=== PATIENT | female | born 1950 | race Caucasian/White ===

== ENCOUNTER 2016-09-21 13:36 | Inpatient (IN) | payer OTHER ==
[~2016-09-21] VITALS: Ht 157.5 cm; Wt 60.0 kg
[2016-09-21] MEDS ORDERED: ASPI81TA28 PO (14:28)
[2016-09-21] MEDS ORDERED: CINN1CAP2 PO (14:28)
[2016-09-21] MEDS ORDERED: MULT-1092 PO (14:28)
[2016-09-21] MEDS ORDERED: GLUC10007 PO (14:28)
[2016-09-21] MEDS ORDERED: CYAN10005 PO (14:28)
[2016-09-21] MEDS ORDERED: CALC600T9 PO (14:28)
[2016-09-21] MEDS ORDERED: VITA400C3 PO (14:28)
[2016-09-21] MEDS ORDERED: OMEG10007 PO (14:28)
[2016-09-21] MEDS ORDERED: PRAV20TA PO (14:28)
--- NOTE | 2016-09-21 17:23 | DIAGNOSTIC IMAGING REPORT ---
PELVIS 1 OR 2 VIEW ROUTINE CLINICAL HISTORY: left hip pain pain COMPARISON: None. DISCUSSION: Subcapital fracture left hip. No evidence of dislocation. Moderate degenerative change right hip. Mild degenerative change sacroiliac joints There is no evidence for soft tissue swelling. IMPRESSION: Nondisplaced subcapital fracture left hip The above report was generated using voice recognition software. It may contain grammatical, syntax or spelling errors. Electronically signed by: Jethro Courtney M.D. 09/21/2016 5:22 PM Dictated Date/Time: 09/21/2016 5:21 PM
--- NOTE | 2016-09-21 17:24 | DIAGNOSTIC IMAGING REPORT ---
CHEST 1 VW FRONT-NOT PORTABLE CLINICAL HISTORY: femur fx, fall trauma COMPARISON STUDY: No previous studies for comparison. FINDINGS: The bones soft tissues and hemidiaphragms are normal. The cardiomediastinal silhouette is normal. The lungs are clear. The pulmonary vasculature is normal. IMPRESSION: Negative chest. The above report was generated using voice recognition software. It may contain grammatical, syntax or spelling errors. Electronically signed by: Jethro Courtney M.D. 09/21/2016 5:22 PM Dictated Date/Time: 09/21/2016 5:22 PM
--- NOTE | 2016-09-21 17:25 | DIAGNOSTIC IMAGING REPORT ---
LEFT FEMUR 2 VIEWS ROUTINE CLINICAL HISTORY: Left hip pain following fall. COMPARISON: None FINDINGS: There is a impacted displaced subcapital left femoral fracture. No additional fractures of the left femur present. Alignment of left knee is anatomic. IMPRESSION: Displaced impacted subcapital left femoral fracture. Electronically signed by: Carlo Dooley M.D. 09/21/2016 5:23 PM Dictated Date/Time: 09/21/2016 5:21 PM
[2016-09-21] MEDS ORDERED: NALOXONE HCL 0.4 MG/1 ML VIAL/CARP IV PRN (18:30)
[2016-09-21] MEDS ORDERED: ONDANSETRON INJ 2 MG/ML 2 ML VIAL IV PRN (18:30)
[2016-09-21] MEDS ORDERED: ACETAMINOPHEN 325 MG TAB PO PRN (18:30)
[2016-09-21] MEDS ORDERED: MAGNESIUM HYDROXIDE SUSP 30 ML UDC PO PRN (18:30)
[2016-09-21] MEDS ORDERED: HYDROmorphone INJ 0.5 MG/0.5 ML SYR IV PRN ×2 (18:30)
--- NOTE | 2016-09-21 18:58 | History and Physical ---
History & Physical Date & Time of Service: Sep 21, 2016 at 18:46 Chief Complaint: FALL Primary Care Physician: No Doctor, Assigned History of Present Illness Source: patient The patient 66-year-old female from [facility]. She was visiting for arch distress. She tripped over someone's foot landed on her hands and left hip. The injury occurred earlier today. She was able to get up and angulate to a short distance to the bathroom but felt pain in her left hip. She was then brought to the emergency room by ambulance where. Workup here diagnosed with a left hip fracture. She denies a prior history of left hip left hip injuries. She has not had any problems with her hip in the past. She denies injury to other areas of the body there is no numbness or tingling. Past Medical/Surgical History Medical Problems: (1) Osteopenia Status: Chronic Elevated cholesterol Surgical history gallbladder ganglion tubal ligation nonoperative management wrist fracture ORIF tibial plateau fracture Family History FH: osteoporosis Social History Smoking Status: Never Smoker Drug Use: none Marital Status: Housing status: lives with family Occupational Status: retired Multi-Drug Resistant Organisms History of MDRO: No Allergies Coded Allergies: No Known Allergies (Unverified , 09/21/16) Home Medications Scheduled Aspirin (Aspirin Ec), 81 MG PO Q3D Calcium Carbonate-Vitamin D (Calcium + D), 1 TAB PO DAILY Cinnamon (Cinnamon), 1 CAP PO DAILY Cyanocobalamin (Vitamin B-12), 1,000 MCG PO DAILY Fish Oil ([place]-3), 1 CAP PO QAM Glucosamine Sulfate (Glucosamine), 1,000 MG PO QAM Multiple Vitamins W/ Minerals (Centrum Silver 50+Women), 1 TAB PO QAM Pravastatin (Pravachol ), 20 MG PO HS Vitamin E (Vitamin E 400 Iu), 400 INTER.UNIT PO DAILY Review of Systems Constitutional: No fever, No chills, No sweats, No weight loss, No weakness, No fatigue, No problem reported Eyes: No worsening of vision, No eye pain, No redness, No discharge, No diplopia, No problem reported ENT: No hearing loss, No unusual epistaxis, No nasal symptoms, No sore throat, No tinnitus, No dental problems, No trouble swallowing, No problem reported Respiratory: No cough, No sputum, No wheezing, No shortness of breath, No dyspnea on exertion, No dyspnea at rest, No hemoptysis, No problem reported Cardiovascular: No chest pain, No orthopnea, No PND, No edema, No claudication , No palpitations, No problem reported Abdomen: No pain, No nausea, No vomiting, No diarrhea, No constipation, No GI bleeding, No problem reported Musculoskeletal: + joint pain, + problem reported Genitourinary - Female: No dysuria, No urinary frequency, No urinary urgency, No urinary incontinence, No urinary retention, No hematuria, No dysmenorrhea, No menorrhagia, No metrorrhagia, No rash, No vaginal bleeding, No vaginal discharge, No vaginal itching, No vulvodynia, No , No problem reported Neurologic: No memory loss, No paralysis, No weakness, No numbness/tingling, No vertigo, No balance problems, No problem reported Psychiatric: No depression symptoms, No anhedonism, No anxiety, No insomnia, No substance abuse, No problem reported Endocrine: No fatigue, No excessive thirst, No excessive urination, No problem reported Hematologic / Lymphatic: No abnormal bleeding/bruising, No clotting problems, No swollen lymph nodes, No night sweats, No problem reported Integumentary: No rash, No itch, No new/changing skin lesions, No color change , No bleeding, No problem reported Allergic / Immunologic: No environmental allergies, No seasonal allergies, No pet sensitivities, No food allergies, No hives, No frequent infections, No poor healing, No prolonged convalescence, No problem reported Physical Exam Vital Signs Date Time Temp Pulse Resp B/P (MAP) Pulse Ox O2 Delivery O2 Flow Rate FiO2 09/21/16 18:29 66 18 150/92 99 Room Air 09/21/16 18:27 66 18 150/92 99 Room Air 09/21/16 15:25 61 18 144/82 99 Room Air 09/21/16 13:44 36.8 68 18 155/109 99 Room Air General Appearance: WD/WN Head: normocephalic Respiratory/Chest: lungs clear Cardiovascular: regular rate, rhythm Abdomen/GI: normal bowel sounds Extremities/Musculoskelatal: + pertinent finding Skin: normal color, warm/dry She is resting in bed awake alert oriented distress. He responds to questions appropriately. She freely moves her neck both upper extremities and her right lower extremity without difficulty. She does not have shortening or external rotation of her left leg. She is actually able to flex her left knee and hip to 90 with minimal difficulty. She can do a leg raise on the left also partially. She has 1 posterior cells pedis pulse with normal sensation in the left lower extremity with 5 out of 5 ankle and toe plantarflexion and dorsiflexion strength. Both lower extremities are nontender to palpation her left hip is not notably tender swollen or bruised. Diagnostics Laboratory Results Labs currently pending Test 09/21/16 18:39 White Blood Count Pending Red Blood Count Pending Hemoglobin Pending Hematocrit Pending Mean Corpuscular Volume Pending Mean Corpuscular Hemoglobin Pending Mean Corpuscular Hemoglobin Concent Pending Platelet Count Pending Prothrombin Time Pending Prothrombin Time INR Pending PTT Pending Partial Thromboplastin Ratio Pending Sodium Level Pending Potassium Level Pending Chloride Level Pending Carbon Dioxide Level Pending Anion Gap Pending Blood Urea Nitrogen Pending Creatinine Pending Estimated GFR () Pending Estimated GFR (Non- Pending BUN/Creatinine Ratio Pending Random Glucose Pending Calcium Level Pending Total Bilirubin Pending Aspartate Amino Transferase (AST) Pending Alanine Aminotransferase (ALT) Pending Alkaline Phosphatase Pending Total Protein Pending Albumin Pending Globulin Pending Albumin/Globulin Ratio Pending 25-Hydroxy Vitamin D Total Pending Results Past 24 Hours Test 09/21/16 18:39 Range/Units Diagnostic Radiology Pelvis and femur x-rays demonstrate a minimally displaced minimally angulated fracture involving the subcapital region of the left hip there is no arthritis. Her canal is wide. Impression Assessment and Plan Left hip fracture Level of Care Med/Surg Resuscitation Status FULL RESUSCITATION VTE Prophylaxis VTE Risk Assessment Done? Y/N: Yes Risk Level: Moderate Given or contraindicated: SCD's Note The patient has a minimally displaced left hip fracture. She record inquired about going back to [place]. That is certainly an option which we can arrange at her leisure. She ultimately elected to stay here and have her care done here. I be happy to see her in follow-up if she could establish care with her previous orthopedic surgeon at home. Her past surgical history includes ganglion gallbladder tubal nonoperative management of the wrist fracture and ORIF of the tibial plateau fracture She'll be admitted to the hospital made nothing by mouth after midnight and bumped into surgery the plan will be for closed reduction percutaneous pinning with cannulated screws versus cemented bipolar hemiarthroplasty. I discussed with her the occasions for surgery the risks benefits rehabilitation and recovery. She has slight lateral displacement and angulation of the fracture. If some simple traction and manipulation reestablish better alignment than cannulated screws could be inserted. If this was not possible than a bipolar hemiarthroplasty would be performed. The risks would include infection bleeding pain scarring around the vessel damage blood clot embolism heart attack stroke or . She does not have any history of bleeding blood clots infections or metal sensitivities. We discussed risks of avascular necrosis nonunion hardware failure shortening limping weakness. Implants can wear out or break hips can come loose or fail length inequality foot drop and dislocation are also risks. The advantage would be for immediate stability and the ability to bear weight and resume her active lifestyle. I personally obtained informed consent. Lovenox for DVT prophylaxis postoperatively. Preoperative mechanical devices for DVT prophylaxis anesthesia preop. Will follow up on her labs are currently being drawn.
[2016-09-21 18:59] LABS: BASO % 0.2 %; BASO ABS # 0.02 K/uL (0-0.2); COMPLETE YES; EOS % 0.2 %; HEMATOCRIT 40.6 % (37-47); IG% 0.2 %; LYMPH % 9.1 %; LYMPH ABS # 0.91 K/uL (1.2-3.4); MEAN CELL VOLUME 89.4 fL (80-100); MEAN CORPUSCULAR HGB CONC 33.5 g/dl (32-36); MEAN PLATELET VOLUME 9.5 fL (7.4-10.4); MONO % 6.7 %; NEUT % 83.6 %; PLATELET COUNT 219 K/uL (130-400); RED BLOOD COUNT 4.54 M/uL (4.2-5.4); WHITE BLOOD COUNT 9.98 K/uL (4.8-10.8)
[2016-09-21 19:09] LABS: PROTHROMBIN TIME (PATIENT) 10.4 SECONDS (9.0-12.0)
[2016-09-21 19:16] LABS: BUN/CREATININE RATIO 17.7 (10-20); CALCIUM 9.5 mg/dl (8.5-10.1); CREATININE 0.75 mg/dl (0.60-1.20)
[2016-09-21 19:19] LABS: ALB/GLOB RATIO 1.7 (0.9-2)
[2016-09-21 19:26] LABS: URINE APPEARANCE CLEAR (CLEAR); URINE BILIRUBIN NEG (NEG); URINE COLOR YELLOW; URINE NITRITE NEG (NEG); URINE PH 5.5 (4.5-7.5); UROBILINOGEN NEG (NEG); ZZURINE CULT IF INDIC CATH NO
--- NOTE | 2016-09-21 19:27 | EMERGENCY ROOM VISIT NOTE ---
History Report prepared by Albertibmonae: Bhargav Loredo Under the Supervision of: Dr. Lei Beach D.O. First contact with patient: 15:27 Chief Complaint: FALL Stated Complaint: FALL History of Present Illness The patient is a 66 year old female who presents to the Emergency Room with complaints of persistent left leg pain secondary to fall occurring a few minutes prior to arrival. The patient was at a lunch gathering today when she tripped over someone's foot, fell on her knees, and rolled over to her left side. She felt lightheaded and laid down for 10 minutes. She needed help getting up and ambulating after the fall. She denies hitting her head or loss of consciousness. Since the fall, she has been having a sharp, stabbing pain in her left leg. She has worsening pain with standing up and ambulating. She has a history of osteopenia. The patient has a family history of osteoporosis with frequent falls and broken bones. Source of History: patient Onset: a few minutes prior to arrival Position: leg (left) Quality: sharp, stabbing Timing: other (persistent) Modifying Factors (Worsening): other (standing up and ambulating) Associated Symptoms: No LOC Review of Systems See HPI for pertinent positives & negatives. A total of 10 systems reviewed and were otherwise negative. Past Medical & Surgical Medical Problems: (1) Closed left hip fracture (2) Osteopenia Family History FH: osteoporosis Social History Smoking Status: Never Smoker Marital Status: Occupation Status: retired Current/Historical Medications Scheduled Aspirin (Aspirin Ec), 81 MG PO Q3D Calcium Carbonate-Vitamin D (Calcium + D), 1 TAB PO DAILY Cinnamon (Cinnamon), 1 CAP PO DAILY Cyanocobalamin (Vitamin B-12), 1,000 MCG PO DAILY Fish Oil ([place]-3), 1 CAP PO QAM Glucosamine Sulfate (Glucosamine), 1,000 MG PO QAM Multiple Vitamins W/ Minerals (Centrum Silver 50+Women), 1 TAB PO QAM Pravastatin (Pravachol ), 20 MG PO HS Vitamin E (Vitamin E 400 Iu), 400 INTER.UNIT PO DAILY Allergies Coded Allergies: No Known Allergies (Unverified , 09/21/16) Physical Exam Vital Signs Date Time Temp Pulse Resp B/P (MAP) Pulse Ox O2 Delivery O2 Flow Rate FiO2 09/21/16 18:29 66 18 150/92 99 Room Air 09/21/16 18:27 66 18 150/92 99 Room Air 09/21/16 15:25 61 18 144/82 99 Room Air 09/21/16 13:44 36.8 68 18 155/109 99 Room Air Physical Exam CONSTITUTIONAL/VITAL SIGNS: Reviewed / noted above. GENERAL: Non-toxic in appearance. INTEGUMENTARY: Warm, dry, and [place]. HEAD: Normocephalic. EYES: without scleral icterus or trauma. ENT/OROPHARYNX: clear and moist. LYMPHADENOPATHY/NECK: Is supple without lymphadenopathy or meningismus. RESPIRATORY: Lungs clear and equal. CARDIOVASCULAR: Regular rate and rhythm. GI/ABDOMEN: Soft and nontender. No organomegaly or pulsatile mass. No rebound or guarding. Normal bowel sounds. EXTREMITIES: Warm and well perfused. Tenderness to palpation of left lateral thigh and hip area. Increased pain with flexion of the left hip. No obvious visible or palpable abnormalities. BACK: No CVA tenderness. NEUROLOGICAL: Intact without focal deficits. PSYCHIATRIC: normal affect. MUSCULOSKELETAL: Normally developed with good muscle tone. Medical Decision & Procedures ER Provider Diagnostic Interpretation: X ray results and stated below per my interpretation and radiology interpretation. CHEST 1 VW FRONT-NOT PORTABLE CLINICAL HISTORY: femur fx, fall trauma COMPARISON STUDY: No previous studies for comparison. FINDINGS: The bones soft tissues and hemidiaphragms are normal. The cardiomediastinal silhouette is normal. The lungs are clear. The pulmonary vasculature is normal. IMPRESSION: Negative chest. The above report was generated using voice recognition software. It may contain grammatical, syntax or spelling errors. Electronically signed by: Jethro Courtney M.D. 09/21/2016 5:22 PM Dictated Date/Time: 09/21/2016 5:22 PM LEFT FEMUR 2 VIEWS ROUTINE CLINICAL HISTORY: Left hip pain following fall. COMPARISON: None FINDINGS: There is a impacted displaced subcapital left femoral fracture. No additional fractures of the left femur present. Alignment of left knee is anatomic. IMPRESSION: Displaced impacted subcapital left femoral fracture. Electronically signed by: Carlo Dooley M.D. 09/21/2016 5:23 PM Dictated Date/Time: 09/21/2016 5:21 PM PELVIS 1 OR 2 VIEW ROUTINE CLINICAL HISTORY: left hip pain pain COMPARISON: None. DISCUSSION: Subcapital fracture left hip. No evidence of dislocation. Moderate degenerative change right hip. Mild degenerative change sacroiliac joints There is no evidence for soft tissue swelling. IMPRESSION: Nondisplaced subcapital fracture left hip The above report was generated using voice recognition software. It may contain grammatical, syntax or spelling errors. Electronically signed by: Jethro Courtney M.D. 09/21/2016 5:22 PM Dictated Date/Time: 09/21/2016 5:21 PM Laboratory Results 09/21/16 18:39 Red Blood Count 4.54, Mean Corpuscular Volume 89.4, Mean Corpuscular Hemoglobin 30.0, Mean Corpuscular Hemoglobin Concent 33.5, Mean Platelet Volume 9.5, Neutrophils (%) (Auto) 83.6, Lymphocytes (%) (Auto) 9.1, Monocytes (%) (Auto) 6.7, Eosinophils (%) (Auto) 0.2, Basophils (%) (Auto) 0.2, Neutrophils # (Auto) 8.34, Lymphocytes # (Auto) 0.91, Monocytes # (Auto) 0.67, Eosinophils # (Auto) 0.02, Basophils # (Auto) 0.02 09/21/16 18:39 Test 09/21/16 18:39 09/21/16 19:00 White Blood Count 9.98 K/uL (4.8-10.8) Red Blood Count 4.54 M/uL (4.2-5.4) Hemoglobin 13.6 g/dL (12.0-16.0) Hematocrit 40.6 % (37-47) Mean Corpuscular Volume 89.4 fL (80-100) Mean Corpuscular Hemoglobin 30.0 pg (25-34) Mean Corpuscular Hemoglobin Concent 33.5 g/dl (32-36) Platelet Count 219 K/uL (130-400) Mean Platelet Volume 9.5 fL (7.4-10.4) Neutrophils (%) (Auto) 83.6 % Lymphocytes (%) (Auto) 9.1 % Monocytes (%) (Auto) 6.7 % Eosinophils (%) (Auto) 0.2 % Basophils (%) (Auto) 0.2 % Neutrophils # (Auto) 8.34 K/uL (1.4-6.5) Lymphocytes # (Auto) 0.91 K/uL (1.2-3.4) Monocytes # (Auto) 0.67 K/uL (0.11-0.59) Eosinophils # (Auto) 0.02 K/uL (0-0.5) Basophils # (Auto) 0.02 K/uL (0-0.2) RDW Standard Deviation 44.0 fL (36.4-46.3) RDW Coefficient of Variation 13.4 % (11.5-14.5) Immature Granulocyte % (Auto) 0.2 % Immature Granulocyte # (Auto) 0.02 K/uL (0.00-0.02) Prothrombin Time 10.4 SECONDS (9.0-12.0) Prothromb Time International Ratio 1.0 (0.9-1.1) Activated Partial Thromboplast Time 27.1 SECONDS (21.0-31.0) Partial Thromboplastin Ratio 1.0 Anion Gap 10.0 mmol/L (3-11) Est Creatinine Clear Calc Drug Dose 57.6 ml/min Estimated GFR () 95.6 Estimated GFR (Non- 82.5 BUN/Creatinine Ratio 17.7 (10-20) Calcium Level 9.5 mg/dl (8.5-10.1) Total Bilirubin 0.7 mg/dl (0.2-1) Aspartate Amino Transf (AST/SGOT) 32 U/L (15-37) Alanine Aminotransferase (ALT/SGPT) 46 U/L (12-78) Alkaline Phosphatase 87 U/L (45-117) Total Protein 6.8 gm/dl (6.4-8.2) Albumin 4.3 gm/dl (3.4-5.0) Globulin 2.5 gm/dl (2.5-4.0) Albumin/Globulin Ratio 1.7 (0.9-2) 25-Hydroxy Vitamin D Total 37.6 ng/ml (30-100) Urine Color YELLOW Urine Appearance CLEAR (CLEAR) Urine pH 5.5 (4.5-7.5) Urine Specific Alligator 1.010 (1.000-1.030) Urine Protein NEG (NEG) Urine Glucose (UA) NEG (NEG) Urine Ketones NEG (NEG) Urine Occult Blood NEG (NEG) Urine Nitrite NEG (NEG) Urine Bilirubin NEG (NEG) Urine Urobilinogen NEG (NEG) Urine Leukocyte Esterase NEG (NEG) Laboratory results as stated above per my review. ED Course 1527: Previous medical records were reviewed. The patient was evaluated in room B08. A complete history and physical examination was performed. 1740: I discussed the patient's case with Dr. Leon, orthopedic surgeon with [facility]. He will evaluate the patient in the Emergency Room. 183: Dr. Leon will take her to surgery tomorrow. On reevaluation, the patient is resting comfortably. I discussed the results and findings with her. She verbalized agreement of the treatment plan. The patient will be evaluated for further management and care. Medical Decision Medication Reconciliation: I attest that I have personally reviewed the patient' s current medication list. Patient was found to have a slightly elevated blood pressure due to circumstances. I do not believe that the patient requires hypertension monitoring. Differential diagnosis: Etiologies such as fracture, dislocation, neurovascular compromise, compartment syndrome, soft tissue injury, as well as others were entertained. This is a 66-year-old female who presents to the ED with a chief complaint of a fall and left hip pain. The patient tripped over someone's feet and fell a short time prior to arrival. She complains of left lateral thigh and hip pain. X-rays reveal a subcapital hip fracture. Blood work was unremarkable. The patient's vital signs are stable. She did not require pain medication. I spoke with Dr. Leon who will admit the patient for further evaluation and surgery. Consults Time Called: 1735 Consulting Physician: Dr. Leon, orthopedic surgeon with [facility] Returned Call: 1740 I discussed the patient's case with Dr. Leon, orthopedic surgeon with [facility]. He will evaluate the patient in the Emergency Room. Impression Primary Impression: Closed left hip fracture Scribe Attestation The scribe's documentation has been prepared under my direction and personally reviewed by me in its entirety. I confirm that the note above accurately reflects all work, treatment, procedures, and medical decision making performed by me. Departure Information Dispostion Being Evaluated By Surgeon Referrals No Doctor, Assigned (PCP) Patient Instructions My [facility]
[2016-09-21 19:29] LABS: MANUAL MICROSCOPIC REQUIRED? NO; REVIEW REQ? NO
[2016-09-21] MEDS: DOCUSATE SODIUM/SENNA 50/8.6MG TAB PO SCH (21:00)
[2016-09-21] MEDS: PRAVASTATIN SOD 20 MG TAB PO SCH (21:25)
[2016-09-21] MEDS: D5W AND 1/2NSS 1,000 ML IV SCH (21:25)
[2016-09-21] MEDS: OXYCODONE HCL IR 5 MG TAB (IMMEDIATE RELEASE) PO PRN (21:26)
--- NOTE | 2016-09-21 21:30 | Anesthesiology Progress Note ---
Anesthesia Progress Note Date of Service Sep 21, 2016. Progress Notes Pt is scheduled for L hip cannulated screw vs. bipolar hemiarthroplasty on . Pt is a healthy 66F who tripped and fell earlier today. She has good functional status. EKG and labs were reviewed. Pt is an acceptable candidate for spinal vs. general anesthesia. Consent was obtained from the patient. All questions and concerns were addressed.
[2016-09-21 21:35] VITALS: BP 122/83; PULSE 78; TEMP 37; Ht 157.5 cm; Wt 60.0 kg
[2016-09-21 22:50] VITALS: BP 128/84; PULSE 62; TEMP 36.7; O2SAT 96
[2016-09-22] VITALS (9 sets, daily range): BP systolic 96–145; BP diastolic 62–88; PULSE 52–91; TEMP 36.2–37.8; O2SAT 95–99
[2016-09-22] MEDS ORDERED: CEFAZOLIN 2000 MG/60 ML D5W IV SCH (06:00)
[2016-09-22] MEDS ORDERED: CEFAZOLIN IV 2,000 MG in DEXTROSE 5% 50ML 50 ML IV SCH (06:00)
--- NOTE | 2016-09-22 07:23 | History & Physical Bridge Note ---
H&P Re-Evaluation Bridge Note: I have examined the patient, reviewed the History & Physical and in the interval since the performance of the History & Physical I have noted the following changes of clinical significance: No changes noted
[2016-09-22] MEDS ORDERED: BUPIVACAINE 0.5 % 5 MG/1 ML PF 10ML VIAL ONE (07:33)
[2016-09-22] MEDS ORDERED: MIDAZOLAM HCL 1 MG/ML 2ML VIAL ONE ×2 (07:36)
[2016-09-22] MEDS ORDERED: FENTANYL CITRATE INJ 50 MCG/1 ML 2 ML VIAL ONE (07:36)
[2016-09-22] MEDS ORDERED: EpHEDrine SULFATE INJ 50 MG/ML AMP IV PRN (07:45)
[2016-09-22] MEDS ORDERED: ONDANSETRON INJ 2 MG/ML 2 ML VIAL IV PRN ×2 (07:45→10:15)
[2016-09-22] MEDS ORDERED: PHENYLEPHRINE 100MCG/ML 5ML SYR IV PRN (07:45)
[2016-09-22] MEDS ORDERED: ATROPINE SULFATE 0.1 MG/ML 5ML SYR IV PRN (07:45)
[2016-09-22] MEDS ORDERED: HYDROmorphone INJ 1 MG/ML SYR IV PRN (07:45)
[2016-09-22] MEDS ORDERED: KETOROLAC TROMETHAMINE 30 MG/ML VIAL IV. PRN (07:45)
[2016-09-22] MEDS ORDERED: POVIDONE-IODINE OP SOLN 30 ML BTL ONE (08:42)
[2016-09-22] MEDS ORDERED: PROPOFOL IV EMULSION 10 MG/ML 20 ML VIAL IV ONE (08:52)
[2016-09-22] MEDS ORDERED: LIDOCAINE HCL 2% 2 ML VIAL (20MG/ML) ONE ×2 (08:52)
[2016-09-22] MEDS ORDERED: PHENYLEPHRINE 100MCG/ML 5ML SYR ONE (09:30)
--- NOTE | 2016-09-22 09:50 | DIAGNOSTIC IMAGING REPORT ---
LEFT HIP OR FILMS CLINICAL HISTORY: HIP PAINhip pinning COMPARISON STUDY: 09/21/2016 FLUOROSCOPY TIME: 1 minute 36 seconds. FINDINGS: Anatomic alignment status post left hip pinning IMPRESSION: Anatomic alignment status post left hip pinning The above report was generated using voice recognition software. It may contain grammatical, syntax or spelling errors. Electronically signed by: Jethro Courtney M.D. 09/22/2016 9:49 AM Dictated Date/Time: 09/22/2016 9:49 AM
--- NOTE | 2016-09-22 10:11 | Anesthesiology Progress Note ---
Anesthesia Post Op Note Date & Time Sep 22, 2016 at 10:11 Vital Signs Pain Intensity: 0 Vital Signs Past 12 Hours Date Time Temp Pulse Resp B/P (MAP) Pulse Ox O2 Delivery O2 Flow Rate FiO2 09/22/16 10:00 56 18 91/64 98 Room Air 09/22/16 09:50 64 14 95/63 98 Room Air 09/22/16 09:46 36.3 68 14 96/67 98 Room Air 09/22/16 07:18 36.4 60 19 145/79 (101) 97 Room Air 09/22/16 00:30 Room Air 09/21/16 22:50 36.7 62 18 128/84 (99) 96 Room Air Notes Mental Status: alert / awake / arousable, participated in evaluation Pt Amnestic to Procedure: Yes Nausea / Vomiting: adequately controlled Pain: adequately controlled Airway Patency, RR, SpO2: stable & adequate BP & HR: stable & adequate Hydration State: stable & adequate Anesthetic Complications: no major complications apparent
[2016-09-22] MEDS ORDERED: MAGNESIUM HYDROXIDE SUSP 30 ML UDC PO PRN (10:15)
[2016-09-22] MEDS ORDERED: BISACODYL 10 MG SUPP PR PRN (10:15)
[2016-09-22] MEDS ORDERED: COUGH DROP (SUGAR FREE) LOZ 24 LOZ/1 BOX PO PRN (10:15)
--- NOTE | 2016-09-22 10:25 | [facility] Operative Report ---
Operative Report Operative Date Sep 22, 2016. Pre-Operative Diagnosis Left hip fracture subcapital animal displacement Post-Operative Diagnosis Left hip Fracture Procedure(s) Performed Left hip closed reduction, percutaneous screw placement Surgeon Dr. Lonnie Leon Compliance Representative Dealer Surgeon(s) None Estimated Blood Loss 10 ml Findings A minimally displaced subcapital fracture of the left femoral neck amenable to closure reduction and percutaneous screws Specimens None per surgeon Drains none Anesthesia spinal with IV sedation Complication(s) None Disposition Recovery Room / PACU Indications The patient 66-year-old female from [facility]. She was visiting for [place]. She tripped and fell injuring her left hip resulting in the after mentioned injury. Options risks and benefits were discussed and she elected to proceed with operative intervention. As the possibility of a closed reduction percutaneous pinning versus hemiarthroplasty. Her fracture is very minimally displaced and should be amenable to hip preservation treatment. I personally obtained informed consent. I reviewed with her and extensive list of risks and benefits including malunion nonunion hardware failure and avascular necrosis. Description of Procedure She was identified as Flora Main she identified the upper site as the left hip I marked with my initials. Preoperative surgical timeout was performed. Appropriate dose of IV antibiotics was given. She was taken to the operating room and positioned supine on the operating room fracture table after the administration of a spinal anesthetic and sedation. DVT prophylaxis intraoperatively with foot pumps postoperatively with early mobility and Lovenox fluoroscopic guidance was utilized throughout the procedure The patient was positioned on the fracture table with the right leg placed into the 90 9D slightly abducted position. I confirmed that she had a pedal pulse present and that her leg was not malposition. It was secured in place. A well- padded parallel posterior utilized. The left leg was then placed into extension and was planted foot and traction boot was applied. Traction was applied, enough to prevent sagging I with a trace bit of internal rotation and abduction. Or scopic images confirmed anatomic alignment. He displacement on the AP view which was about couple millimeters initially was completely resolved. Lateral view was anatomically aligned. The left hip was then prepped and draped in the usual sterile fashion using a shower curtain. The orientation of the bone and location of the incision were identified with fluoroscopic assistance. Of 5 cm incision was made over the mid lateral thigh. Electrocautery utilized down to subcutaneous tissues the IT band was divided in line with the incision and the vastus lateralis was bluntly divided to provide direct access to the bone. Tissue protectors were utilized. Guidepin was introduced inferior and central along the femoral neck confirmed fluoroscopically and adjusted 2. Was parallel to the inferior border of the femoral neck with an insertion point beginning at or above the lesser trochanter. 2 additional guide pins were placed 1 posterior and slightly above central and another one anterior and central. Guide pins were drilled within 5 mm of the subchondral bone and position confirmed with multiplanar fluoroscopy. The lengths of the screws were determined with a measuring device. The lateral cortex was opened and screws appropriate length were inserted. The inferior screw had a 32 mm thread length yellow to screws had 16 mm thread lengths. Screws were inserted within 5 mm of the subchondral bone based upon biplanar fluoroscopy. The fracture remained anatomically aligned. Escrow Clerk images were obtained. The guidepins were removed. The anterior pin protruded slightly anteriorly but was well within the distal fragment. The deep subcutaneous tissues were closed with several interrupted 0 Vicryl to skin with 2-0 Vicryl dawit on the skin a soft sterile dressing was applied after cleaning the leg. The patient was taken off of the fracture table transferred to the hospital bed and awakened from anesthesia without difficulty taken to the recovery room in stable condition. There were no specimens or complications. Counts are correct in the case. Blood loss was approximately 10-15 mL. Betadine and a lavage irrigation was utilized at the end of the operation. At the conclusion operation spoke patient's family informed of my findings detailed postoperative instructions. She'll be placed on Lovenox for DVT prophylaxis she'll have PT and OT and will be able to weight-bear as tolerated with a walker. She'll need a further workup and treatment for osteopenia/ osteoporosis. Implants inserted were an Synthes 7.3 millimeter cannulated screws 3 I attest to the content of the Intraoperative Record and any orders documented therein. Any exceptions are noted below.
[2016-09-22] MEDS: CALCIUM 600MG + VIT D 400 IU TAB PO SCH (11:08)
[2016-09-22] MEDS: D5W AND 1/2NSS 1,000 ML IV SCH ×2 (11:09→21:22)
[2016-09-22] MEDS ORDERED: ASPIRIN 81 MG ECTAB PO SCH (11:30)
[2016-09-22] MEDS: CEFAZOLIN IV 1,000 MG in DEXTROSE 5% 50ML 50 ML IV SCH ×2 (15:49→23:41)
[2016-09-22] MEDS: DOCUSATE SODIUM/SENNA 50/8.6MG TAB PO SCH (21:00)
[2016-09-22] MEDS: PRAVASTATIN SOD 20 MG TAB PO SCH (21:21)
[2016-09-22] MEDS: OXYCODONE HCL IR 5 MG TAB (IMMEDIATE RELEASE) PO PRN (21:22)
[2016-09-22] MEDS: ENOXAPARIN 40 MG/0.4 ML SYR SQ SCH (21:23)
[2016-09-23 06:17] LABS: HEMATOCRIT 34.5 % (37-47); MEAN CELL VOLUME 91.3 fL (80-100); MEAN CORPUSCULAR HEMOGLOBIN 30.7 pg (25-34); MEAN CORPUSCULAR HGB CONC 33.6 g/dl (32-36); MEAN PLATELET VOLUME 9.5 fL (7.4-10.4); PLATELET COUNT 175 K/uL (130-400); RED BLOOD COUNT 3.78 M/uL (4.2-5.4); WHITE BLOOD COUNT 5.65 K/uL (4.8-10.8)
[2016-09-23 07:09] VITALS: BP 126/75; PULSE 67; TEMP 36.8; O2SAT 96
[2016-09-23] MEDS: CEROVITE ADV FORMULA TAB PO SCH (08:25)
[2016-09-23] MEDS: CALCIUM 600MG + VIT D 400 IU TAB PO SCH (08:26)
[2016-09-23] MEDS ORDERED: NURSING VERBAL MED ORDER ONE (11:00)
--- NOTE | 2016-09-23 11:03 | Progress Note ---
Progress Note Date of Service Sep 23, 2016. Progress Note Resting comfortably in bed. Soreness. Pain well-controlled. Has been up to the bathroom and out in the [place] with PT ambulating with minimal difficulty. No numbness or tingling. Both knees were slightly sore yesterday improved today. Afebrile vital signs stable. CBC noted and acceptable. Minimal if any bruising on either knee. Left knee movement is limited because of hip pain right knee movement is full there is no effusion in either knee. She has 5 out of 5 ankle and toe plantarflexion and dorsiflexion strength. 1 posterior cells pedis pulse. Normal sensation in both lower extremities. She can flex and extend her knee with a half grade weakness. Her thigh is soft dressing clean and dry there is no abnormal swelling. Impression is pathological fracture of the left hip secondary to osteoporosis. Plan findings discussed with the patient and . I reviewed with my surgical findings area DVT prophylaxis with Lovenox for at least 1 month postop. She received a routine course of postop IV antibiotics. She'll continue with PT and OT. We discussed her ultimate disposition and if she is doing very well she can go home with home rehabilitation services. She is from out of town and will need to take a couple brakes on her trip home. She has a Jean Marie and could sit in a reclined position. Medication-taylor stool softener pain pill Lovenox 40 mg subcutaneous daily and her regular meds. If there is any problems with pain fever swelling numbness and tingling or other problems or questions please call my office go to her local orthopedic doctor or to her emergency room and a local area. Weight-bear as tolerated with walker. She can transition to a cane and off the cane under the guidance of her therapist at home. We can attempt to set up home health and home PT services for her. If necessary we can arrange shelter or acute care rehabilitation depending on how she is doing tomorrow. She'll follow-up with me October 05 which is a Saturday. We discussed further follow-ups. We discussed issues related to a bone healing shortening possible avascular necrosis. She can do quad sets leg raises knee and hip range of motion gluteal pinches.. Yulia will be and see her tomorrow. I am out of town for the next [address] Woodsonelli be covering as necessary.
[2016-09-23 16:02] VITALS: BP 123/83; PULSE 77; TEMP 37.4; O2SAT 96
[2016-09-23] MEDS: PRAVASTATIN SOD 20 MG TAB PO SCH (21:25)
[2016-09-23] MEDS: OXYCODONE HCL IR 5 MG TAB (IMMEDIATE RELEASE) PO PRN (21:25)
[2016-09-23] MEDS: DOCUSATE SODIUM/SENNA 50/8.6MG TAB PO SCH (21:25)
[2016-09-23] MEDS: ENOXAPARIN 40 MG/0.4 ML SYR SQ SCH (21:27)
[2016-09-24 00:20] VITALS: BP 125/84; PULSE 77; TEMP 37; O2SAT 95
[2016-09-24 06:38] VITALS: BP 126/83; PULSE 72; TEMP 36.9; O2SAT 96
[2016-09-24] MEDS: CEROVITE ADV FORMULA TAB PO SCH (08:08)
[2016-09-24] MEDS: CALCIUM 600MG + VIT D 400 IU TAB PO SCH (08:08)
[2016-09-24] MEDS ORDERED: LVNIS40 SQ (08:44)
[2016-09-24] MEDS ORDERED: DOCU-94 PO (08:44)
[2016-09-24] MEDS ORDERED: TRAM-10 PO (08:44)
[2016-09-24] MEDS ORDERED: OXYC-57 PO (08:44)
--- NOTE | 2016-09-24 08:53 | Orthopedic Progress Note ---
Orthopedic Progress Note Date of Service Sep 24, 2016. Subjective Post OP Day: 2 Reports: feeling well, pain controlled w PO medications, Denies: complaints, chest pain, SOB, nausea / vomiting, light headedness, calf pain Objective calves soft nontender, N/V intact, capillary refill less than 2 sec., dressing C /D/I, incision C/D/I, A&O x3, toes mobile SILVESTRE stockings in place. Tolerates gentle range of motion of left hip and left knee. Mild distal edema left lower extremity. Distal pulses 1+. Full painless ankle range of motion tolerated. Osiel retained in incision. Dressings changed by nursing. No erythema around incision. No evidence of seroma. Date Time Temp Pulse Resp B/P (MAP) Pulse Ox O2 Delivery O2 Flow Rate FiO2 09/24/16 07:10 Room Air 09/24/16 06:38 36.9 72 16 126/83 (97) 96 Room Air 09/24/16 00:25 Room Air 09/24/16 00:20 37.0 77 16 125/84 (98) 95 Room Air 09/23/16 17:10 Room Air 09/23/16 16:02 37.4 77 18 123/83 (96) 96 Room Air Assessment & Plan Assessment: Postop day 2-status post close reduction percutaneous pinning left proximal hip fracture. Plan: Weightbearing as tolerated left lower extremity. PT/OT - out of bed as tolerated with the assistance of a walker. Pain medication as prescribed Lovenox 40 mg subcutaneous every 24 hours 28 days. Regular diet Teds and SCDs for DVT prophylaxis Change dressings daily and when necessary. Case management for discharge needs. Discharge to home with in-home health and physical therapy today. Follow-up with Dr. Leon as scheduled in approximately 2 weeks. Discharge Planning Discharge Planning: home with home health Pain Management: Percocet, Ultram DVT Prophylaxis: TEDs Therapy: Physical Therapy
--- NOTE | 2016-09-24 08:58 | Discharge Instructions ---
Discharge Instructions Date of Service Sep 24, 2016. Admission Reason for Admission: Closed Left Hip Fracture Discharge Discharge Diagnosis / Problem: left hip fracture Discharge Goals Goal(s): Decrease discomfort, Improve function, Increase independence Activity Recommendations Activity Limitations: per Instructions/Follow-up section Weightbearing Status: Left weightbearing (as tolerated) . Instructions / Follow-Up Instructions / Follow-Up New Medicine: * You will likely be taking one or more of these medications: 1. Lovenox-40 mg subcutaneously daily 4 weeks. Aspirin, 81 mg is OK to take with Lovenox. 2. Percocet - Take, as directed, when you need it, every four to six hours to control your pain. 3. Mjjsusul-6-4 tablets every 4-6 hours as needed for pain. Okay to alternate with Percocet. Take for mild to moderate pain. 4. Colace & Senokot - Take to prevent constipation which can be caused by narcotics. These can be bought [id number] at the pharmacy * The most common side effects of pain medicine and iron are nausea and constipation. If nausea or constipation is too much of a problem or if you have any questions about your new medicines or doses, call [facility] at . We will try to help you manage these issues. VERY IMPORTANT TO READ AND REVIEW" Blood Clots and Blood Thinning Medicine: * You are given Lovenox during the immediate post-operative period to lessen the risk of blood clots forming in your legs and/or lungs. Physical Therapy: * Do your physical therapy at home. These are the exercises you learned while in the hospital (quad sets, leg raises, calf pumps, gluteal squeezes, knee bending, and heel props.) You should do these exercises 3-4 times per day. * You will either go to inpatient rehab ([facility]), home with Home Therapy and nursing or home with outpatient rehab. You should do rehab with the therapist 2-3 times per week. You should do therapy on your own daily. * You may bear full weight on your leg with crutches or walker unless otherwise advised. Home Exercise: * You were shown a series of exercises (heel props, heel slides, etc.) in the hospital. Do these exercises three to four times each day including the exercises you were shown in physical therapy. Walking: * You may be up for short periods of time. Standing and walking for 1-2 hours at a time is usually oK. You should not stand or walk for excessive periods of time as this may cause increased pain and swelling. SELF CARE INSTRUCTIONS AFTER TOTAL HIP REPLACEMENT A. Your balance may be shaky for a while. Use crutches or a walker until directed by your doctor. B. Use hand rails when walking on stairs. C. Wear low heeled shoes with non-slip soles. D. Be sure that your floors are free of things that could trip you - throw rugs , electrical cords, small objects. Avoid wet and waxed floors, especially with crutches and canes. E. Try to walk several times a day with rest periods between. F. Continue with all the exercises taught to you in the hospital. Again, make walking a part of your daily routine. VERY IMPORTANT TO READ AND REVIEW A. Take Lovenox (blood thinning medication) as directed by your doctor. You will need to obtain a CBC (complete blood count) at approximately 1 week after surgery. B. There are a few signs you need to watch for after you are home. If you notice any of the followin. Increased severe hip pain. Some pain is expected especially when you exercise. 2. Increased swelling in your leg or knee; pain or swelling of the calf muscle in either lower leg. 3. Any fluid drainage from the incision. 4. Shortness of breath or chest pain. TEDs/Elastic Stockings: * The white elastic stockings help limit swelling and prevent blood clots from forming in your legs. The more you wear them, the more they work. * Wear them for six weeks. Things to Watch For: * Drainage from the incision site that occurs more than one week after your surgery. * Severely increased leg pain or swelling. * Increased redness at the incision site. * Fever above 101 degrees Fahrenheit. * Unusual chest pain or shortness of breath. * Unusual pain or burning with urination. Follow-Up Visit: You will follow-up with Dr. Leon 10-14 days after surgery. The office number is . You have a follow-up appointment with Dr. Leon on 10/05/2016 at 9 AM. Avoid all tobacco products. If you need help to stop smoking, call [place]'s FREE QUITLINE at . This is a free call. Current Hospital Diet Patient's current hospital diet: Regular Diet Discharge Diet Recommended Diet: Regular Diet Procedures Procedures Performed: Left hip closed reduction, percutaneous screw placement Pending Studies Studies pending at discharge: no Medical Emergencies . Who to Call and When: Medical Emergencies: If at any time you feel your situation is an emergency, please call 911 immediately. . Non-Emergent Contact Non-Emergency issues call your: Surgeon Call Non-Emergent contact if: temperature is above 101, your pain is not controlled, your pain is concerning you, wound has increased drainage, wound has increased redness, wound has increased pain, you have any medication questions . "Provider Documentation" section prepared by Yulia Mcmahon. . VTE Core Measure Inpt VTE Proph given/why not?: Enoxaparin (Lovenox)SQ (40 mg daily x 28 days), [employer] Drug Monitoring Program Search Results: patient reviewed within database, no issues identified
[2016-09-24 09:15] VITALS: BP 126/83; PULSE 72; TEMP 36.9; O2SAT 96
[2016-09-24] MEDS ORDERED: ENOXAPARIN 40 MG/0.4 ML SYR SQ SCH (11:00)
--- NOTE | 2016-09-24 14:03 | Discharge Summary ---
Discharge Summary Date of Service Sep 24, 2016. Discharge Summary Admission Date: Sep 21, 2016 at 19:13 Discharge Date: Sep 24, 2016 Discharge Disposition: Home with services Principal Diagnosis: left proximal femur fracture Secondary Diagnoses/Problems: osteopenia Procedures: ORIF left femur fracture - 09/22/16 Pending Studies/Follow-Up: You have a follow up appointment with Dr. Leon on 10/05/16 at 9:00 a.m. Medication Reconciliation New Medications: Docusate Sodium (Colace) 100 Mg Cap 1 CAP PO BID for 30 Days, #60 CAP 2 Refills Oxycodone/Acetaminophen 5MG/325MG (Percocet 5MG/325MG) Tab 1-2 TABLETS PO Q4H PRN for Pain, #30 TAB for severe pain Tramadol (Ultram) 50 Mg Tab 50-100 MG PO Q4H PRN for Pain, #30 TAB for mild to moderate pain; ok to alternate with Percocet Enoxaparin (Enoxaparin Sodium) 40 Mg/0.4 Ml Inj 40 MG SQ Q24H for 28 Days, 1 Refill Continued Medications: Aspirin (Aspirin Ec) 81 Mg Tab 81 MG PO Q3D Calcium Carbonate-Vitamin D (Calcium + D) 1 Tab Tab 1 TAB PO DAILY Cinnamon (Cinnamon) 500 Mg Cap 1 CAP PO DAILY Cyanocobalamin (Vitamin B-12) 1,000 Mcg Tab 1000 MCG PO DAILY, TAB Fish Oil (Spray-3) 1 Ea Cap 1 CAP PO QAM, CAP Multiple Vitamins W/ Minerals (Centrum Silver 50+Women) 1 Tab Tab 1 TAB PO QAM Pravastatin (Pravachol ) 20 Mg Tab 20 MG PO HS, TAB Vitamin E (Vitamin E 400 Iu) 400 Unit Cap 400 INTER.UNIT PO DAILY, CAP Discontinued Medications: Glucosamine Sulfate (Glucosamine) 1,000 Mg Tab 1000 MG PO QAM, TAB Admission Information HPI (per Admitting provider): The patient 66-year-old female from [facility] [place]. She was visiting for arch distress. She tripped over someone's foot landed on her hands and left hip. The injury occurred earlier today. She was able to get up and angulate to a short distance to the bathroom but felt pain in her left hip. She was then brought to the emergency room by ambulance where. Workup here diagnosed with a left hip fracture. She denies a prior history of left hip left hip injuries. She has not had any problems with her hip in the past. She denies injury to other areas of the body there is no numbness or tingling. Physical Exam (per Admitting): General Appearance: WD/WN Head: normocephalic Respiratory/Chest: lungs clear Cardiovascular: regular rate, rhythm Abdomen/GI: normal bowel sounds Extremities/Musculoskelatal: + pertinent finding Skin: normal color, warm/dry Physical Exam (per Admitting): She is resting in bed awake alert oriented distress. He responds to questions appropriately. She freely moves her neck both upper extremities and her right lower extremity without difficulty. She does not have shortening or external rotation of her left leg. She is actually able to flex her left knee and hip to 90 with minimal difficulty. She can do a leg raise on the left also partially. She has 1 posterior cells pedis pulse with normal sensation in the left lower extremity with 5 out of 5 ankle and toe plantarflexion and dorsiflexion strength. Both lower extremities are nontender to palpation her left hip is not notably tender swollen or bruised. Hospital Course Patient was admitted on 09/21/16 after falling [place] [employer] after tripping over someone else's foot. She had immediate left hip pain and was unable to get up and walk. She was brought to the ED complaining of left hip pain. X-rays were taken and she was found to have a minimally displaced left subcapital hip fracture. She was admitted for care. Surgical intervention recommended and discussed, risks/complications discussed and informed consent obtained. She was made NPO pn MN. She underwent an ORIF of her left hip fracture on 09/22/[address] Leon. Her surgery was done with spinal anesthesia block. She was given 2gm IV Ancef for surgical prophylaxis which was continued for 24 hours post operatively. She tolerated the procedure well without any intra- operative complications. Post operatively, she was allowed out of bed, weight bearing as tolerated with the assistance of a walker. She was started on Lovenox 40mg SQ daily x 1 month for DVT prophylaxis. As well as SILVESTRE stockings. PT/OT was consulted as well as case management for discharge needs. She did well out of bed, her pain was well controlled with oral pain medication, She tolerated a regular diet post operatively. On POD 2 her dressings to her left hip were changed, her incision was clean, dry, and intact. A script for a walker was provided and we set up for delivery on Saturday. A referral for home health was made for in home nursing and physical therapy. All questions were answered, discharge instructions were provided. She did well out of bed and was discharged to her home with in home health services on 09/24/16 in stable condition. Total time spent on discharge = This includes examination of the patient, discharge planning, medication reconciliation, and communication with other providers. Discharge Instructions Discharge Instructions Date of Service Sep 24, 2016. Admission Reason for Admission: Closed Left Hip Fracture Discharge Discharge Diagnosis / Problem: left hip fracture Discharge Goals Goal(s): Decrease discomfort, Improve function, Increase independence Activity Recommendations Activity Limitations: per Instructions/Follow-up section Weightbearing Status: Left weightbearing (as tolerated) . Instructions / Follow-Up Instructions / Follow-Up New Medicine: * You will likely be taking one or more of these medications: 1. Lovenox-40 mg subcutaneously daily 4 weeks. Aspirin, 81 mg is OK to take with Lovenox. 2. Percocet - Take, as directed, when you need it, every four to six hours to control your pain. 3. Ersqgwld-1-2 tablets every 4-6 hours as needed for pain. Okay to alternate with Percocet. Take for mild to moderate pain. 4. Colace & Senokot - Take to prevent constipation which can be caused by narcotics. These can be bought [id number] at the pharmacy * The most common side effects of pain medicine and iron are nausea and constipation. If nausea or constipation is too much of a problem or if you have any questions about your new medicines or doses, call [facility] at . We will try to help you manage these issues. VERY IMPORTANT TO READ AND REVIEW" Blood Clots and Blood Thinning Medicine: * You are given Lovenox during the immediate post-operative period to lessen the risk of blood clots forming in your legs and/or lungs. Physical Therapy: * Do your physical therapy at home. These are the exercises you learned while in the hospital (quad sets, leg raises, calf pumps, gluteal squeezes, knee bending, and heel props.) You should do these exercises 3-4 times per day. * You will either go to inpatient rehab ([facility]), home with Home Therapy and nursing or home with outpatient rehab. You should do rehab with the therapist 2-3 times per week. You should do therapy on your own daily. * You may bear full weight on your leg with crutches or walker unless otherwise advised. Home Exercise: * You were shown a series of exercises (heel props, heel slides, etc.) in the hospital. Do these exercises three to four times each day including the exercises you were shown in physical therapy. Walking: * You may be up for short periods of time. Standing and walking for 1-2 hours at a time is usually oK. You should not stand or walk for excessive periods of time as this may cause increased pain and swelling. SELF CARE INSTRUCTIONS AFTER TOTAL HIP REPLACEMENT A. Your balance may be shaky for a while. Use crutches or a walker until directed by your doctor. B. Use hand rails when walking on stairs. C. Wear low heeled shoes with non-slip soles. D. Be sure that your floors are free of things that could trip you - throw rugs , electrical cords, small objects. Avoid wet and waxed floors, especially with crutches and canes. E. Try to walk several times a day with rest periods between. F. Continue with all the exercises taught to you in the hospital. Again, make walking a part of your daily routine. VERY IMPORTANT TO READ AND REVIEW A. Take Lovenox (blood thinning medication) as directed by your doctor. You will need to obtain a CBC (complete blood count) at approximately 1 week after surgery. B. There are a few signs you need to watch for after you are home. If you notice any of the followin. Increased severe hip pain. Some pain is expected especially when you exercise. 2. Increased swelling in your leg or knee; pain or swelling of the calf muscle in either lower leg. 3. Any fluid drainage from the incision. 4. Shortness of breath or chest pain. TEDs/Elastic Stockings: * The white elastic stockings help limit swelling and prevent blood clots from forming in your legs. The more you wear them, the more they work. * Wear them for six weeks. Things to Watch For: * Drainage from the incision site that occurs more than one week after your surgery. * Severely increased leg pain or swelling. * Increased redness at the incision site. * Fever above 101 degrees Fahrenheit. * Unusual chest pain or shortness of breath. * Unusual pain or burning with urination. Follow-Up Visit: You will follow-up with Dr. Leon 10-14 days after surgery. The office number is . You have a follow-up appointment with Dr. Leon on 10/05/2016 at 9 AM. Avoid all tobacco products. If you need help to stop smoking, call [facility]IT[facility] at . This is a free call. Current Hospital Diet Patient's current hospital diet: Regular Diet Discharge Diet Recommended Diet: Regular Diet Procedures Procedures Performed: Left hip closed reduction, percutaneous screw placement Pending Studies Studies pending at discharge: no Medical Emergencies . Who to Call and When: Medical Emergencies: If at any time you feel your situation is an emergency, please call 911 immediately. . Non-Emergent Contact Non-Emergency issues call your: Surgeon Call Non-Emergent contact if: temperature is above 101, your pain is not controlled, your pain is concerning you, wound has increased drainage, wound has increased redness, wound has increased pain, you have any medication questions . "Provider Documentation" section prepared by Yulia Mcmahon. . VTE Core Measure Inpt VTE Proph given/why not?: Enoxaparin (Lovenox)SQ (40 mg daily x 28 days), Veronica [place] Drug Monitoring Program Search Results: patient reviewed within database, no issues identified
== END 2016-09-24 12:07 | disposition home health service (06) | DRG 482 ==
LOC: C.EDB 13:40 → C.3E 19:13 → ENRESERV 19:35
PROVIDERS: ADMIT Physical Medicine & Rehabilitation Sports Medicine; ATTEND Physical Medicine & Rehabilitation Sports Medicine
PROC: 0QS734Z Reposition Left Upper Femur with Internal Fixation Device, Percutaneous Approach (ICD-10-PCS; principal; 2016-09-22 07:30)
DX: M84.452A Pathological fracture, left femur, initial encounter for fracture (principal); W03.XXXA Other fall on same level due to collision with another person, initial encounter; Y92.89 Other specified places as the place of occurrence of the external cause; Y93.01 Activity, walking, marching and hiking; M81.0 Age-related osteoporosis without current pathological fracture

== ENCOUNTER → 2016-10-05 | Outpatient (CLI) | payer OTHER ==
[~2016-10-05] MED LIST: ASPI81TA28 PO; CALC600T9 PO; CINN1CAP2 PO; CYAN10005 PO; DOCU-94 PO; LVNIS40 SQ; MULT-1092 PO; OMEG10007 PO; OXYC-57 PO; PRAV20TA PO; TRAM-10 PO; VITA400C3 PO
== END | disposition home or self-care (01) ==
LOC: C.RDSM 13:29
PROVIDERS: ATTEND Physical Medicine & Rehabilitation Sports Medicine
DX: M25.562 Pain in left knee (principal); M25.552 Pain in left hip

== ENCOUNTER → 2016-11-02 | Outpatient (CLI) | payer OTHER | END | disposition home or self-care (01) | LOC: C.RDSM 11:00 | PROVIDERS: ATTEND Physical Medicine & Rehabilitation Sports Medicine | DX: M80.052A Age-related osteoporosis with current pathological fracture, left femur, initial encounter for fracture (principal) ==